=== PATIENT | female | born 1970 | race Caucasian/White ===

== ENCOUNTER 2019-10-16 12:12 | Emergency (ER) | payer BC, OTHER ==
[~2019-10-16] VITALS: Ht 160 cm; Wt 90.7 kg
[2019-10-16] MEDS ORDERED: LISI-552 (12:27)
--- NOTE | 2019-10-16 12:31 | ED Lower Extremity ---
General Chief Complaint: Lower Extremity Stated Complaint: L ANKLE PAIN/MISSED A STEP Nursing Triage Note: LEFT ANKLE PAIN AFTER MISSING STEP THIS AM. Nursing Sepsis Screen: No Definite Risk History of Present Illness Date Seen by Provider: Oct 16, 2019 Time Seen by Provider: 12:29 Initial Comments 49-year-old female who presents with left ankle pain. Reports that she missed a step this morning. When she twisted her ankle. It hurts to bear weight. Patient denies any other injuries. Allergies and Home Medications Allergies Coded Allergies: No Known Drug Allergies (Unverified , 10/16/19) Patient Home Medication List Home Medication List Reviewed: Yes Review of Systems Constitutional: no symptoms reported EENTM: no symptoms reported Respiratory: cough Cardiovascular: no symptoms reported Gastrointestinal: no symptoms reported Musculoskeletal: see HPI Past Uzwpvxq-Zdovmq-Jzrwmr Hx Past Med/Social Hx: Reviewed Nursing Past Med/Soc Hx Patient Social History Alcohol Use: Denies Use Recreational Drug Use: No Smoking Status: Never a Smoker Recent Foreign Travel: No Contact w/Someone Who Travel: No Recent Infectious Disease Expo: No Recent Hopitalizations: No Seasonal Allergies Seasonal Allergies: No Past Medical History Section, Hysterectomy, Orthopedic Respiratory: No Cardiac: No Neurological: No Genitourinary: No Gastrointestinal: No Musculoskeletal: No Endocrine: Yes Diabetes, Non-Insulin dep Cancer: No Psychosocial: No Integumentary: No Physical Exam Vital Signs Vital Signs - First Documented 10/16/19 12:15 Temp 37.0 Pulse 83 Resp 16 B/P (MAP) 155/95 (115) Pulse Ox 99 O2 Delivery Room Air Capillary Refill : Less Than 3 Seconds Height, Weight, BMI Height: '" Weight: lbs. oz. kg; 35.00 BMI Method: General Appearance: WD/WN, no apparent distress Cardiovascular: normal peripheral pulses, regular rate, rhythm Respiratory: lungs clear, normal breath sounds Gastrointestinal: non tender, soft Hips: bilateral hip non-tender Legs: bilateral leg non-tender Knees: bilateral knee non-tender Ankles: right ankle non-tender; left ankle limited range of motion, left ankle soft tissue tenderness, left ankle swelling Feet: bilateral foot non-tender Neurologic/Psychiatric: alert, normal mood/affect, oriented x 3 Skin: normal color, warm/dry Progress/Results/Core Measures Results/Orders My Orders Orders - MARIAM LYON DO Ankle, Left, 3 Views (10/16/19 12:28) Tibia/Fibula, Left, 2 Views (10/16/19 12:45) Ortho Glass (10/16/19 13:06) Crutches (10/16/19 13:06) Vital Signs/I&O 10/16/19 12:15 Temp 37.0 Pulse 83 Resp 16 B/P (MAP) 155/95 (115) Pulse Ox 99 O2 Delivery Room Air Blood Pressure Mean: 115 Progress Progress Note : Time: 13:12 Progress Note Patient with left tibia fracture just proximal to the hardware from a previous ankle surgery. Patient will have a posterior splint placed, given crutches and should follow-up with orthopedic surgery next week Departure Impression Primary Impression: Fracture of tibia or fibula following insertion of orthopedic implant, joint prosthesis, or bone plate, left leg Disposition: HOME, SELF-CARE Condition: Stable Departure-Patient Inst. Referrals: FAUSTINA TATE (PCP/Family) Primary Care Physician Patient Instructions: Fibula Fracture Add. Discharge Instructions: Please call the orthopedic surgeon of your choice Friday morning to arrange for follow-up and reevaluation as soon as possible Do not bear weight on left leg All discharge instructions reviewed with patient and/or family. Voiced understanding. Scripts Hydrocodone Bit/Acetaminophen (Hydrocodone/Acetaminophen 5/325mg Tablet) 1 Tab Tab 1 EACH PO Q4-6HR PRN for PAIN-MODERATE MDD 10 for 3 Days, #8 TAB Prov: MARIAM LYNO DO 10/16/19 Work/School Note: Work Release Form Date Seen in the Emergency Department: Oct 16, 2019 Restrictions: Need Release from Doctor MARIAM LYON DO Oct 16, 2019 12:30
--- NOTE | 2019-10-16 12:58 | Diagnostic Imaging Report ---
EXAMINATION: Left ankle radiographs, 3 views. COMPARISON: None. HISTORY: 49-year-old female, fall. Left ankle pain. FINDINGS: There is sideplate and screw fixation hardware at the level of the distal fibular diaphysis. There is a mildly displaced mid to distal fibular diaphyseal fracture just above the level of the sideplate. The distal fracture fragment is displaced laterally by 4 mm. There are medial malleolar are fixation screws. There is a mildly displaced posterior malleolar fracture with incomplete bridging. Recommend correlation with patient history. There is a small calcaneal heel spur. The alignment of the ankle mortise is grossly unremarkable. There is incomplete healing of a probable prior medial malleolar fracture traversed by the fixation screws. IMPRESSION: 1. Acute mid to distal fibular diaphyseal fracture occurring just above the level of the sideplate and screw fixation hardware. 2. Incomplete healing of prior medial malleolar and probable prior posterior malleolar fractures. Dictated by: Dictated on workstation # [id number]
--- NOTE | 2019-10-16 13:01 | Diagnostic Imaging Report ---
EXAMINATION: Left tibia and fibula radiographs, 2 views, 4 images. COMPARISON: None. HISTORY: 49-year-old female, fall. Left ankle pain. FINDINGS: There is a mildly displaced mid to distal fibular diaphyseal fracture just above the level of the sideplate and screw fixation hardware with displacement of the distal fracture fragment laterally by 4 mm. There are medial malleolar screws traversing an incompletely bridged medial malleolar fracture which is transversely oriented. There is most likely a prior nonunited fracture of the posterior malleolus. Correlation with patient history is recommended. There is no knee joint effusion. There is a small calcaneal heel spur. IMPRESSION: 1. Acute mildly displaced mid to distal fibular diaphyseal fracture occurring just proximal to the sideplate and screw fixation hardware in the distal fibula. Dictated by: Dictated on workstation # [id number]
[2019-10-16] MEDS ORDERED: ACHD5005 PO (13:17)
--- NOTE | 2019-10-16 13:25 | NUR ---
DR LYON CHECKED SPLINT THAT WAS PLACED AND STATES IT IS FINE. [facility] CHECK WNL.
[2019-10-16 13:31] VITALS: BP 155/95
== END 2019-10-16 13:31 | disposition home or self-care (01) ==
LOC: EDUNIT# 12:12 → ER 12:14
DX: M96.671 Fracture of tibia or fibula following insertion of orthopedic implant, joint prosthesis, or bone plate, right leg (principal); X50.1XXA Overexertion from prolonged static or awkward postures, initial encounter
CPT/HCPCS: 29505; 73590; 73610

== ENCOUNTER 2019-10-22 11:54 | Emergency (ER) | payer OTHER ==
[~2019-10-22] VITALS: Ht 154 cm; Wt 97.0 kg
[~2019-10-22 11:54] MED LIST: ACHD5005 PO; LISI-552
[2019-10-22 12:00] VITALS: BP 131/84
[2019-10-22] MEDS ORDERED: ESTR2TAB (12:10)
[2019-10-22] MEDS ORDERED: FAMO20TA5 (12:10)
--- NOTE | 2019-10-22 12:23 | ED Lower Extremity ---
General Chief Complaint: Post OP Complications/Pain Stated Complaint: L LEG POST OP BLEEDING Nursing Triage Note: SURGERY ON LEG WED BY DR FORREST. STATES SHE WANTS US TO CHECK THE BRITTANEY AND POSSIBLY DUE A DRESSING CHANGE BECAUSE IT IS BLEEDING. Nursing Sepsis Screen: No Definite Risk Source: patient Exam Limitations: no limitations History of Present Illness Date Seen by Provider: Oct 22, 2019 Time Seen by Provider: 12:19 Initial Comments Patient sustained a fibular fracture on the left on . She had ORIF Dr. Osmar Franklin on 10/20/19. Today she noticed some oozing of blood from the superior aspect of the lateral incision. She called Dr. Forrest who advised her to go to either [facility] or [facility], they didn't want to drive that far so they came here. No fevers, no severe pain. Onset: this morning Severity: mild Pain/Injury Location: left leg Modifying Factors: Worse With Movement Allergies and Home Medications Allergies Coded Allergies: No Known Drug Allergies (Unverified , 10/16/19) Home Medications Hydrocodone Bit/Acetaminophen 1 Tab Tab, 1 EACH PO Q4-6HR PRN for PAIN-MODERATE Prescribed by: MARIAM LYON on 10/16/19 1317 Patient Home Medication List Home Medication List Reviewed: Yes Review of Systems Constitutional: see HPI; No chills EENTM: see HPI Respiratory: no symptoms reported Cardiovascular: no symptoms reported Genitourinary: no symptoms reported Musculoskeletal: see HPI Skin: see HPI Past Mrazhji-Hslike-Hubwcx Hx Patient Social History Alcohol Use: Denies Use Recreational Drug Use: No Smoking Status: Never a Smoker Recent Foreign Travel: No Contact w/Someone Who Travel: No Recent Infectious Disease Expo: No Recent Hopitalizations: Yes Seasonal Allergies Seasonal Allergies: No Past Medical History Section, Hysterectomy, Orthopedic Respiratory: No Cardiac: No Neurological: No Genitourinary: No Gastrointestinal: No Musculoskeletal: No Endocrine: Yes Diabetes, Non-Insulin dep Cancer: No Psychosocial: No Integumentary: No Physical Exam Vital Signs Vital Signs - First Documented 10/22/19 12:00 Temp 36.6 Pulse 87 Resp 16 B/P (MAP) 131/84 (100) Pulse Ox 99 O2 Delivery Room Air Capillary Refill : Less Than 3 Seconds Height, Weight, BMI Height: '" Weight: lbs. oz. kg; 40.00 BMI Method: General Appearance: WD/WN, no apparent distress HEENT: PERRL/EOMI, normal ENT inspection Respiratory: no respiratory distress, no accessory muscle use Hips: bilateral hip non-tender, bilateral hip normal inspection, bilateral hip normal range of motion Legs: left leg other (the splint and wrap was removed. There was some dried serous and was drainage from the superior aspect of the lateral incision. Some slight serous drainage from the inferior aspect of the medial incision. Gowen are all in place, no erythema. Brisk capillary refill and normal sensation of toes. The Xeroform was removed and replaced with Xeroform here, we wrapped with Sof-Rol and splint was reapplied.) Knees: bilateral knee non-tender, bilateral knee normal inspection, bilateral knee normal range of motion Ankles: bilateral ankle non-tender, bilateral ankle normal inspection, bilateral ankle normal range of motion Feet: bilateral foot non-tender, bilateral foot normal inspection, bilateral foot normal range of motion Neurologic/Psychiatric: alert, normal mood/affect, oriented x 3 Skin: normal color, warm/dry Progress/Results/Core Measures Results/Orders Vital Signs/I&O 10/22/19 12:00 Temp 36.6 Pulse 87 Resp 16 B/P (MAP) 131/84 (100) Pulse Ox 99 O2 Delivery Room Air Blood Pressure Mean: 100 Departure Impression Primary Impression: Encounter for postoperative wound care Disposition: 01 HOME, SELF-CARE Condition: Stable Departure-Patient Inst. Decision time for Depature: 12:22 Referrals: FAUSTINA TATE (PCP/Family) Primary Care Physician Patient Instructions: Wound Care (DC) Add. Discharge Instructions: Return to ER for any concerns. Follow-up with as scheduled ALLI MATHEW APRN Oct 22, 2019 12:23
--- OUTSIDE RECORDS SUMMARY | 2019-10-26 11:54 | XMS REPORT | Continuity of Care Document ---
Author Organization Unknown Address Unknown Phone Unavailable Allergies Active Description Code Type Severity Reaction Onset Reported/Identified Relationship to Patient Clinical Status Yes No Known Drug Allergies [id number] Drug Allergy Unknown N/A 10/16/2019 Medications There is no data. Problems Date Dx Coded Attending Type Code Diagnosis Diagnosed By 10/09/2008 DEB ELLIOTT MD 250.0 0 DIABETES II CONTROLLED 10/09/2008 DEB ELLIOTT MD 272.4 HYPERLIPIDEMIA UNSPECIFIED 10/09/2008 DEB ELLIOTT MD 276.8 HYPOKALEMIA 10/09/2008 DEB ELLIOTT MD 278.0 WEIGHT MANAGEMENT 10/09/2008 DEB ELLIOTT MD 307.4 0 INSOMNIA 10/09/2008 DEB ELLIOTT MD 401.1 HYPERTENSION, BENIGN ESSENTIAL 10/09/2008 DEB ELLIOTT MD 535.5 0 GASTRITIS UNSPEC 10/09/2008 DEB ELLIOTT MD 564.1 IRRITABLE BOWEL SYNDROME 10/09/2008 DEB ELLIOTT MD 719.0 7 EDEMA FOOT 10/09/2008 DEB ELLIOTT MD 724.5 BACKACHE 10/09/2008 MARIBELL TAYLOR APRNA S 250.00 DIABETES II CONTROLLED 10/09/2008 GAVI TAYLOR APRNNDA S 272.4 HYPERLIPIDEMIA UNSPECIFIED 10/09/2008 GAVI TAYLOR APRNNDA S 276.8 HYPOKALEMIA 10/09/2008 GAVI TAYLOR APRNNDA S 278.0 WEIGHT MANAGEMENT 10/09/2008 GAVI TAYLOR APRNNDA S 307.40 INSOMNIA 10/09/2008 GAVI TAYLOR APRNNDA S 401.1 HYPERTENSION, BENIGN ESSENTIAL 10/09/2008 GAVI TAYLOR APRNNDA S 535.50 GASTRITIS UNSPEC 10/09/2008 BRANDON PATEL ROJAS S 564.1 IRRITABLE BOWEL SYNDROME 10/09/2008 GAVI TAYLOR APRNNDA S 719.07 EDEMA FOOT 10/09/2008 GAVI TAYLOR APRNNDA S 724.5 BACKACHE 10/09/2008 SANCHEZ DDS, BERNARD 250.00 DIABETES II CONTROLLED 10/09/2008 SANCHEZ DDS, BERNARD 27 2.4 HYPERLIPIDEMIA UNSPECIFIED 10/09/2008 SANCHEZ DDS, BERNARD 27 6.8 HYPOKALEMIA 10/09/2008 SANCHEZ DDS, BERNARD 27 8.0 WEIGHT MANAGEMENT 10/09/2008 SANCHEZ DDS, BERNARD 307.40 INSOMNIA 10/09/2008 SANCHEZ DDS, BERNARD 40 1.1 HYPERTENSION, BENIGN ESSENTIAL 10/09/2008 SANCHEZ DDS, BERNARD 535.50 GASTRITIS UNSPEC 10/09/2008 SANCHEZ DDS, BERNARD 56 4.1 IRRITABLE BOWEL SYNDROME 10/09/2008 SANCHEZ DDS, BERNARD 719.07 EDEMA FOOT 10/09/2008 SANCHEZ DDS, BERNARD 72 4.5 BACKACHE 11/29/2008 DEB ELLIOTT MD V72.3 GYNECOLOGICAL EXAMINATION 11/29/2008 ROJAS TAYLOR APRN V72.3 GYNECOLOGICAL EXAMINATION 11/29/2008 SANCHEZ DDS, BERNARD V7 2.3 GYNECOLOGICAL EXAMINATION 02/06/2009 DEB ELLIOTT MD 272.2 HYPERLIPIDEMIA, MIXED 02/06/2009 DEB ELLIOTT MD 401.9 HYPERTENSION, UNSPECIFIED ESSENTIAL 02/06/2009 ROJAS TAYLOR APRN 272.2 HYPERLIPIDEMIA, MIXED 02/06/2009 ROJAS TAYLOR APRN 401.9 HYPERTENSION, UNSPECIFIED ESSENTIAL 02/06/2009 SANCHEZ DDS, BERNARD 27 2.2 HYPERLIPIDEMIA, MIXED 02/06/2009 SANCHEZ DDS, BERNARD 40 1.9 HYPERTENSION, UNSPECIFIED ESSENTIAL 03/07/2009 DEB ELLIOTT MD NODX NO DIAGNOSIS 03/07/2009 ROJAS TAYLOR APRN NODX NO DIAGNOSIS 03/07/2009 SANCHEZ DDS, BERNARD NO DX NO DIAGNOSIS 04/01/2009 DEB ELLIOTT MD V74.1 SCREENING EXAMINATION FOR PULMONARY TUBERCULOSIS 04/01/2009 ROJAS TAYLOR APRN V74.1 SCREENING EXAMINATION FOR PULMONARY TUBERCULOSIS 04/01/2009 BERNARD SANCHEZ DDS V7 4.1 SCREENING EXAMINATION FOR PULMONARY TUBERCULOSIS 04/10/2009 DEB ELLIOTT MD V70.4 EXAMINATION FOR MEDICOLEGAL REASONS 04/10/2009 ROJAS TAYLOR APRN V70.4 EXAMINATION FOR MEDICOLEGAL REASONS 04/10/2009 BERNARD SANCHEZ DDS V7 0.4 EXAMINATION FOR MEDICOLEGAL REASONS 05/17/2009 DEB ELLIOTT MD 729.5 PAIN IN LIMB 05/17/2009 ROJAS TAYLOR APRN 729.5 PAIN IN LIMB 05/17/2009 DANIEL CARROLL, BERNARD 72 9.5 PAIN IN LIMB 09/05/2009 DEB ELLIOTT MD 327.2 3 OBSTRUCTIVE SLEEP APNEA (ADULT) (PEDIATRIC) 09/05/2009 DEB ELLIOTT MD 530.8 1 ESOPHAGEAL REFLUX 09/05/2009 ROJAS TAYLOR APRN 327.23 OBSTRUCTIVE SLEEP APNEA (ADULT) (PEDIATRIC) 09/05/2009 ROJAS TAYLOR APRN 530.81 ESOPHAGEAL REFLUX 09/05/2009 BERNARD SANCHEZ DDS 327.23 OBSTRUCTIVE SLEEP APNEA (ADULT) (PEDIATRIC) 09/05/2009 DANIEL CARROLL, BERNARD 530.81 ESOPHAGEAL REFLUX 10/25/2014 DEB ELLIOTT MD 729.8 2 CRAMP OF LIMB 10/25/2014 ROJAS TAYLOR APRN 729.82 CRAMP OF LIMB 10/25/2014 BERNARD SANCHEZ DDS 729.82 CRAMP OF LIMB 11/17/2014 ROJAS TAYLOR APRN 477.0 ALLERGIC RHINITIS DUE TO POLLEN 11/17/2014 ROJAS TAYLOR APRN 719.43 PAIN- WRIST 11/17/2014 BERNARD SANCHEZ DDS 47 7.0 ALLERGIC RHINITIS DUE TO POLLEN 11/17/2014 BERNARD SANCHEZ DDS 719.43 PAIN- WRIST 10/19/2019 LYON DO, MARIAM L Ot M25.5 72 PAIN IN LEFT ANKLE AND JOINTS OF LEFT FO 10/19/2019 LYON DO, MARIAM L Ot M96.6 71 FX TIB/FIB FOL INSRT ORTHO IMPLNT/PROSTH 10/19/2019 LYON DO, MARIAM L Ot X50.1XXA OVEREXERTION FROM PROLONGED STATIC OR AW Procedures Code [place] [address] XRAY WRIST L COMP MIN 3 VIEWS 11/17/2014 Results Test Result Range CBC MORPHOLOGY - 04/02/19 08:39 CBC MORPHOLOGY NORMAL Encounters ACCT No. Visit Date/Time Discharge Status Pt. Type Provider Facility Loc./Unit Complaint [id number] 08/05/2019 09:40:00 08/05/2019 23:59 :00 DIS Outpatient Faustina Tate [id number] 06/25/2019 10:19:00 06/25/2019 23:59: 00 DIS Outpatient Faustina Tate [id number] 04/02/2019 08:40:00 04/02/2019 23:59:5 9 CLS Outpatient FAUSTINA TATE [id number] 04/02/2019 08:40:00 Document Registration [id number] 10/22/2019 11:55:00 020 12:25:00 DIS Emergency ALLI MATHEW APRN [facility] ER L LEG POST OP BLEEDING [id number] 10/16/2019 12:14:00 020 13:31:00 DIS Outpatient MARIAM LYON DO [facility] ER L ANKLE PAIN/MISSED A S TEP [id number] 04/02/2019 11:48:00 019 23:59:59 CLS Preadmit SURI TATEBERLY Gabino YARN WEIGHER [facility] RAD SCREENING [id number] 12/09/2014 15:56:00 12/09/2014 23:59: 59 CLS Outpatient BERNARD SANCHEZ DDS [id number] 11/17/2014 13:24:00 11/17/2014 23:59: 59 CLS Outpatient ROJAS TAYLOR APRN [id number] 10/25/2014 15:23:00 10/25/2014 23:59: 59 CLS Outpatient EARL WINSTON, DEB
== END 2019-10-22 12:25 | disposition home or self-care (01) ==
LOC: EDUNIT# 11:54 → ER 11:55
DX: S82.402D Unspecified fracture of shaft of left fibula, subsequent encounter for closed fracture with routine healing (principal); X58.XXXD Exposure to other specified factors, subsequent encounter
CPT/HCPCS: 99282

== ENCOUNTER 2020-03-15 10:58 | Outpatient (RCR) | payer MEDICARE, OTHER ==
[~2020-03-15 10:58] MED LIST changes: +ESTR2TAB; +FAMO20TA5
== END 2020-03-15 12:15 | disposition home or self-care (01) ==
PROVIDERS: ATTEND Podiatrist
DX: S82.842A Displaced bimalleolar fracture of left lower leg, initial encounter for closed fracture (principal); M81.0 Age-related osteoporosis without current pathological fracture; R03.0 Elevated blood-pressure reading, without diagnosis of hypertension; E11.9 Type 2 diabetes mellitus without complications; Z98.890 Other specified postprocedural states; Z87.81 Personal history of (healed) traumatic fracture; X58.XXXA Exposure to other specified factors, initial encounter

== ENCOUNTER 2020-06-06 05:32 | Outpatient (RCR) | payer MEDICARE ==
[~2020-06-06] VITALS: Ht 154.9 cm; Wt 99.5 kg
[~2020-06-06 05:32] MED LIST changes: +ASPI-1238 PO; +ATOR20TA66 PO; +DAPA10TA PO; -ESTR2TAB; +ESTR2TAB PO; +FOLI-74 PO; +FURO20TA4 PO; -LISI-552; +LISI-552 PO; +METF-865 PO; +PANT40TA52 PO; +PROM12.511 PO
== END 2020-06-06 10:28 | disposition home or self-care (01) ==
LOC: PREOP 05:32
PROVIDERS: ATTEND Surgery
DX: Z01.812 Encounter for preprocedural laboratory examination (principal); K80.80 Other cholelithiasis without obstruction; Z20.828 Contact with and (suspected) exposure to other viral communicable diseases
CPT/HCPCS: 87635

== ENCOUNTER 2020-06-08 06:54 | Day surgery (SDC) | payer MEDICARE ==
[~2020-06-08] VITALS: Ht 154 cm; Wt 99.5 kg
[2020-06-08] VITALS (12 sets, daily range): BP systolic 116–132; BP diastolic 71–88
[2020-06-08] MEDS ORDERED: BUP/EPI 0.5% 1:200,000 (SENSORCAINE) 30 ML VIAL ONE (07:27)
[2020-06-08] MEDS ORDERED: IOPAMIDOL 61% 30 ML (ISOVUE 300) VIAL ONE (07:27)
[2020-06-08] MEDS ORDERED: LACTATED RINGERS 1,000 ML IV PRN (07:33)
[2020-06-08] MEDS ORDERED: fentaNYL INJECTION 100 MCG/2 ML AMP ONE (07:38)
[2020-06-08] MEDS ORDERED: proPOfol 200 MG/20 ML (DIPRIVAN) VIAL IV ONE (07:38)
[2020-06-08] MEDS ORDERED: ROCURONIUM 10 MG/ML 5 ML SYRINGE IV ONE (07:38)
[2020-06-08] MEDS ORDERED: GLYCOPYRROLATE 0.2 MG/ML (ROBINUL) 2 ML VIAL ONE (07:38)
[2020-06-08] MEDS ORDERED: NEOSTIGMINE 3 MG/3 ML VIAL ONE (07:38)
[2020-06-08] MEDS ORDERED: LIDOCAINE PF 2% 5 ML (XYLOCAINE) VIAL ONE (07:38)
[2020-06-08] MEDS ORDERED: ONDANSETRON 4 MG/2 ML (SDV) Z0FRAN ONE (07:38)
[2020-06-08] MEDS ORDERED: SEVOFLURANE (ULTANE) 15 ML INHAL SOLN ONE ×3 (07:38→10:04)
[2020-06-08] MEDS ORDERED: MIDAZOLAM 2 MG/2 ML (VERSED) VIAL ONE (07:38)
[2020-06-08] MEDS ORDERED: ceFAZolin 2 GM IV Premixed 50 ML IV ONE (07:45)
[2020-06-08 07:46] LABS: BASOPHILS # (AUTO) 0.1 10^3/uL (0.0-0.1); BASOPHILS % (AUTO) 1 % (0-10); EOSINOPHILS # (AUTO) 0.1 10^3/uL (0.0-0.3); EOSINOPHILS % (AUTO) 2 % (0-10); HEMATOCRIT 43 % (35-52); HEMOGLOBIN 14.8 g/dL (11.5-16.0); LYMPHOCYTES # (AUTO) 2.2 10^3/uL (1.0-4.0); LYMPHOCYTES % (AUTO) 29 % (12-44); MEAN CORPUSCULAR HEMOGLOBIN 30 pg (25-34); MEAN CORPUSCULAR HGB CONC 34 g/dL (32-36); MEAN CORPUSCULAR VOLUME 86 fL (80-99); MONOCYTES # (AUTO) 0.4 10^3/uL (0.0-1.0); MONOCYTES % (AUTO) 5 % (0-12); NEUTROPHILS % (AUTO) 63 % (42-75); PLATELET COUNT 344 10^3/uL (130-400); WHITE BLOOD COUNT 7.8 10^3/uL (4.3-11.0)
[2020-06-08 07:59] LABS: CALCIUM 9.3 MG/DL (8.5-10.1); CREATININE SERUM 1.14 MG/DL (0.60-1.30); POTASSIUM 3.5 MMOL/L (3.6-5.0)
--- NOTE | 2020-06-08 08:03 | Progress Note-Pre Operative ---
Pre-Operative Progress Note H&P Reviewed The H&P was reviewed, patient examined and no changes noted. Date Seen by Provider: Jun 08, 2020 Time Seen by Provider: 08:02 Date H&P Reviewed: Jun 08, 2020 Time H&P Reviewed: 08:02 Pre-Operative Diagnosis: symptomatic cholelithiasis JULIUS EDMONDSON DO Jun 08, 2020 08:03
[2020-06-08] MEDS ORDERED: HYDROmorphone 2 MG/ML VIAL (DILAUDID) ONE (10:05)
--- NOTE | 2020-06-08 10:05 | Progress Note-Post Operative ---
Post-Operative Progess Note Surgeon (s)/Interventional Neuroradiologist (s) Surgeon JULIUS EDMONDSON DO Interventional Neuroradiologist: Dr. Cuevas to assist in retraction dissection and closure Pre-Operative Diagnosis symptomatic cholelithiasis Post-Operative Diagnosis symptomatic acute on chronic cholecystitis Procedure & Operative Findings Date of Procedure 06/08/20 Procedure Performed/Findings PROCEDURE: Laparoscopic cholecystectomy with intraoperative cholangiogram. COMPLICATIONS: None. PROCEDURE: The patient was taken to the operating suite and was prepped and draped in sterile fashion. A surgical pause was performed. Just superior to the umbilicus, a 12 mm incision was made. Dissection was taken down to the fascia, which was then scored and grasped with a Pravin and the abdomen was then entered. A 0 Vicryl suture was placed in a [id number] fashion and a Meyer trocar was placed and secured. Pneumoperitoneum was achieved. A 5mm trochar place in the subxyphoid and 2 in the right upper quadrant. The gallbladder was then grasped and elevated. It was inflammed and thickened. Had appearance of acute on chronic cholecystitis. The cystic duct, and cystic artery were then dissected out. Clip was placed on the distal portion of the cystic duct which was then partially transected. An arrow catheter was inserted into the duct. The cholangiogram was then performed. No filing defects and contrast made its way into the duodenum. Catheter removed. Clips were placed on proximal portion of the cystic duct and then the duct was then transected. Clips were placed along the proximal and distal portion of the cystic artery which was then transected. Hook cautery was used to dissect the gallbladder from the gallbladder fossa achieving hemostasis. A hole was mad in gallbladder and large gallstone came out. The gallbladder and stone was placed in an Endobag and removed through the 12 mm trocar site. The abdomen was then reinspected. Copious amounts of irrigation were used to irrigate the abdomen and there were no signs of active bleeding. Hemostasis had been achieved. The 12 mm fascial defect was then closed with 0 Vicryl suture that had been placed in a [id number] fashion. The abdomen was then desufflated, the trocars were removed. The abdomen was then washed and dried. The skin was then closed using 4-0 Monocryl in a subcuticular fashion. The abdomen was washed and dried and Skin Affix was place over incisions. Patient tolerated the procedure well without any complications and was taken to the recovery room in stable condition. Anesthesia Type general Estimated Blood Loss Estimated blood loss (mL): min Specimens/Packing Specimens Removed gallbladder JULIUS EDMONDSON DO Jun 08, 2020 10:05
[2020-06-08] MEDS ORDERED: HYDR-4226 PO (10:06)
--- NOTE | 2020-06-08 10:08 | Discharge Inst-Simple/Standard ---
Discharge Inst-Standard Discharge Medications New, Converted or Re-Newed RX: RX on Chart Patient Instructions/Follow Up Plan of Care/Instructions/FU: 2 weeks Vanessa Activity as Tolerated: No Discharge Diet: Regular Diet Other Inst to Patient Follow up Appt: Make appointment for 2 weeks. Instructions: No lifting greater than 10 pounds. No strenuous activity. May shower in 24 hours, no tub bath or soaking. Use incentive spirometer at home as directed. No Smoking Skin/Wound Care: You have special glue over incision, it will fall off on it's own. Symptoms to Report: Appetite Changes, Extremity Discoloration, Numbness/Tingling, Swelling Increased, Bleeding Excessive, Eyesight Changes, Pain Increased, Urine Color Change, Constipation(Persistent), Fever over 101 degree F, Pain/Pressure in ches t, Urinating Difficulty, Cough Up/Vomit Blood, Heart Beat Irreg/Pounding, Pain/Pressure in jaw, Vaginal Bleeding Increase, Cramps in feet or legs, Lightheadedness, Pain/Pressure in shoulder, Diarrhea(Persistent), Memory Changes Suddenly, Questions/Concerns, Weight gain consecutive days, Dizziness/Fainting, Nausea/Vomiting, Shortness of Breath, Weight gain over 2 pounds. If eyes or skin turn yellow notify physician. If questions or concerns contact your physician Or seek help at emergency department. JULIUS EDMONDSON DO Jun 08, 2020 10:07
--- NOTE | 2020-06-08 10:22 | Diagnostic Imaging Report ---
INDICATION: Fluoroscopy for intraoperative cholangiogram. Fluoroscopy was provided in the OR during intraoperative cholangiogram. 13 seconds of fluoroscopy time was utilized. Images demonstrate contrast being injected via the cystic duct remnant. There is opacification of the normal caliber intrahepatic and extrahepatic bile ducts. No filling defects are seen to suggest retained stone. Contrast flows into the duodenum. IMPRESSION: Fluoroscopy during intraoperative cholangiogram. Dictated by: Dictated on workstation # [id number]
[2020-06-08] MEDS ORDERED: morphine INJ 10 MG/ML 1ML (SYR OR VIAL) IVP ONE (10:30)
[2020-06-08] MEDS ORDERED: HYDROmorphone 2 MG/ML VIAL (DILAUDID) IV ONE (10:30)
[2020-06-08] MEDS ORDERED: ONDANSETRON 4 MG/2 ML (SDV) Z0FRAN IVP PRN (10:30)
--- NOTE | 2020-06-08 11:37 | Anesthesia-General Post-Op ---
General Patient Condition Mental Status/LOC: Same as Preop Cardiovascular: Satisfactory Nausea/Vomiting: Absent Respiratory: Satisfactory Pain: Controlled Complications: Absent Post Op Complications Complications None Follow Up Care/Instructions Patient Instructions None needed. Anesthesia/Patient Condition Patient Condition Patient is doing well, no complaints, stable vital signs, no apparent adverse anesthesia problems. PEACE MORGAN DO Jun 08, 2020 11:37
== END 2020-06-08 12:40 | disposition home or self-care (01) ==
LOC: SDC 06:54
PROVIDERS: ATTEND Surgery
DX: K80.12 Calculus of gallbladder with acute and chronic cholecystitis without obstruction (principal); K82.8 Other specified diseases of gallbladder; E11.9 Type 2 diabetes mellitus without complications; I10 Essential (primary) hypertension; E78.5 Hyperlipidemia, unspecified; E66.01 Morbid (severe) obesity due to excess calories; Z68.41 Body mass index [BMI] 40.0-44.9, adult; Z79.899 Other long term (current) drug therapy; Z79.84 Long term (current) use of oral hypoglycemic drugs; Z79.82 Long term (current) use of aspirin; Z79.890 Hormone replacement therapy; Z11.2 Encounter for screening for other bacterial diseases
CPT/HCPCS: 36415; 76000; 80048; 82962; 85025; 87081

== ENCOUNTER → 2020-11-06 | Outpatient (CLI) | payer MEDICARE, OTHER ==
[~2020-11-06] MED LIST changes: +HYDR-4226 PO; -LISI-552 PO; +LISI20TA26 PO
--- NOTE | 2020-11-06 12:42 | Diagnostic Imaging Report ---
Indication: Routine screening. No prior mammograms are available for comparison. 2-D and 3-D bilateral screening mammography was performed with CAD. Scattered fibroglandular densities are identified bilaterally. No mass or malignant appearing microcalcifications are seen. Axillae are unremarkable. IMPRESSION: BI-RADS Category 1 No mammographic features suspicious for malignancy are identified. ACR BI-RADS Category 1: Negative. Result letter will be mailed to the patient. Note: At least 10% of breast cancer is not imaged by mammography. Dictated by: Dictated on workstation # [id number]
== END ==
LOC: RAD 10:55
PROVIDERS: ATTEND Nurse Practitioner
DX: Z12.31 Encounter for screening mammogram for malignant neoplasm of breast (principal)
CPT/HCPCS: 77063; 77067

== ENCOUNTER → 2021-05-03 | Outpatient (CLI) | payer OTHER ==
[~2021-05-03] VITALS: Ht 154.9 cm; Wt 103.0 kg
[~2021-05-03] MED LIST changes: +BENZ200C51 PO; +GEMF600T88 PO; +GLIM2TAB4 PO; +POTA10TA36 PO; +TRAM50TA3 PO
== END | disposition home or self-care (01) ==
LOC: PREOP 06:58
PROVIDERS: ATTEND Surgery
DX: Z01.818 Encounter for other preprocedural examination (principal)

== ENCOUNTER 2021-05-15 07:27 | Day surgery (SDC) | payer OTHER ==
[~2021-05-15] VITALS: Ht 155 cm; Wt 103.0 kg
[2021-05-15] MEDS ORDERED: LACTATED RINGERS 1,000 ML IV STA (07:33)
[2021-05-15] MEDS ORDERED: LACTATED RINGERS 1,000 ML IV ONE (07:37)
[2021-05-15] MEDS ORDERED: PROPOFOL INJECTION 50 ML IV ONE ×2 (07:58→08:59)
[2021-05-15] MEDS ORDERED: MIDAZOLAM 2 MG/2 ML (VERSED) VIAL ONE (07:58)
[2021-05-15 08:15] VITALS: BP 118/78
--- NOTE | 2021-05-15 08:17 | Progress Note-Pre Operative ---
Pre-Operative Progress Note H&P Reviewed The H&P was reviewed, patient examined and no changes noted. Date Seen by Provider: May 15, 2021 Time Seen by Provider: 08:16 Date H&P Reviewed: May 15, 2021 Time H&P Reviewed: 08:17 Pre-Operative Diagnosis: screening colonoscopy JULIUS EDMONDSON DO May 15, 2021 08:17
[2021-05-15] MEDS ORDERED: KETAMINE SYRINGE 50 MG/5 ML SYRINGE ONE (08:59)
[2021-05-15 09:25] VITALS: BP 109/62
--- NOTE | 2021-05-15 09:25 | Progress Note-Post Operative ---
Post-Operative Progess Note Surgeon (s)/Car Racer (s) Surgeon JULIUS EDMONDSON DO Car Racer: na Pre-Operative Diagnosis screening colonoscopy Post-Operative Diagnosis sigmoid polyp Procedure & Operative Findings Date of Procedure 05/15/21 Procedure Performed/Findings colonoscopy with hot bx polypectomy Anesthesia Type per plisse machine operator Estimated Blood Loss Estimated blood loss (mL): none Specimens/Packing Specimens Removed sigmoid polyp JULIUS EDMONDSON DO May 15, 2021 09:25
--- NOTE | 2021-05-15 09:25 | Discharge Inst-Simple/Standard ---
Discharge Inst-Standard Patient Instructions/Follow Up Plan of Care/Instructions/FU: 2 weeks denisse Activity as Tolerated: Yes Discharge Diet: Regular Diet JULIUS EDMONDSON DO May 15, 2021 09:25
[2021-05-15 09:30] VITALS: BP 113/61
[2021-05-15 09:35] VITALS: BP 113/61
[2021-05-15 09:53] VITALS: BP 113/61
--- NOTE | 2021-05-15 14:31 | Anesthesia-General Post-Op ---
MAC Patient Condition Mental Status/LOC: Same as Preop Cardiovascular: Satisfactory Nausea/Vomiting: Absent Respiratory: Satisfactory Pain: Controlled Complications: Absent Post Op Complications Complications None Follow Up Care/Instructions Patient Instructions None needed. Anesthesiology Discharge Order Discharge Order Patient is doing well, no complaints, stable vital signs, no apparent adverse anesthesia problems. No complications reported per nursing. ADAN BISWAS CRNA May 15, 2021 14:31
--- NOTE | 2021-05-15 14:39 | OPERATIVE REPORT ---
DATE OF SERVICE: 05/15/2021 PREOPERATIVE DIAGNOSIS: Screening colonoscopy. POSTOPERATIVE DIAGNOSIS: Sigmoid colon polyp. PROCEDURE: Colonoscopy with hot biopsy polypectomy. SURGEON: Julius Mendez DO ANESTHESIA: Per ENAMEL SPRAYER. ESTIMATED BLOOD LOSS: None. COMPLICATIONS: None. INDICATIONS: The patient is a 51-year-old female needing screening colonoscopy. She understands risks and benefits of procedure and wished to proceed with procedure. Consent was signed in the chart. DESCRIPTION OF PROCEDURE: The patient was taken to the endoscopy suite, placed in left lateral recumbent position. Timeout was performed. Digital rectal exam was performed. No palpable polyps, masses or ulcerations. Scope was inserted in the rectum and advanced all the way to cecum with minimal difficulty. Prep was adequate. Scope was then slowly retracted back. There were no polyps, masses or ulcerations in the cecum, ascending, transverse and descending colon. In sigmoid colon, a small polyp was present, which hot biopsy polypectomy was performed. Scope was then continuously retracted back noting no other pathology. Once in the rectum, scope was retroflexed noting no other pathology. Scope was returned to its normal position, slowly withdrawn until completely removed. The patient tolerated procedure well without any complications. She was taken to recovery room in stable condition. RECOMMENDATIONS: The patient will need repeat colonoscopy in 5 years. Any issues before that be seen at that time. The patient will follow up in the office in 2 weeks to discuss pathology results. Job ID: [id number] DocumentID: [id number] Dictated Date: 05/15/2021 09:29:38 Hoop Expander Date: 05/15/2021 14:39:06 Dictated By: JULIUS MENDEZ DO
== END 2021-05-15 09:56 | disposition home or self-care (01) ==
LOC: ENDO 07:27
PROVIDERS: ATTEND Surgery
DX: Z12.11 Encounter for screening for malignant neoplasm of colon (principal); K63.5 Polyp of colon; I10 Essential (primary) hypertension; E11.9 Type 2 diabetes mellitus without complications; Z79.899 Other long term (current) drug therapy; Z79.84 Long term (current) use of oral hypoglycemic drugs; Z79.02 Long term (current) use of antithrombotics/antiplatelets
CPT/HCPCS: 82947; 88305

== ENCOUNTER → 2021-06-15 | Outpatient (CLI) | payer OTHER ==
[~2021-06-15] MED LIST changes: -ESTR2TAB PO; +ESTR2TAB3 PO
--- NOTE | 2021-06-15 12:02 | Diagnostic Imaging Report ---
EXAMINATION: Right shoulder at 1048 AM INDICATION: Shoulder pain 3 views were obtained. There are no prior studies available for comparison. There is no fracture, dislocation or acute bony abnormality evident. There is only mild degenerative disease involving the glenohumeral and acromioclavicular joints. The soft tissues are unremarkable. IMPRESSION: There is no evidence for an acute bony abnormality. Dictated on workstation # [id number]
== END ==
LOC: RAD 10:17
PROVIDERS: ATTEND Nurse Practitioner
DX: M25.511 Pain in right shoulder (principal)
CPT/HCPCS: 73030

== ENCOUNTER → 2021-12-28 | Outpatient (CLI) | payer OTHER ==
[~2021-12-28] MED LIST changes: -POTA10TA36 PO; +POTA10TA37 PO
--- NOTE | 2021-12-28 11:37 | Diagnostic Imaging Report ---
Indication: Bilateral 3-D digital screening with CAD. CAD is utilized. The current study was also evaluated with a Computer Aided Detection (CAD) system. COMPARISON: 10/2020 FINDINGS: Density 2. A few scattered vascular calcifications stable. No suspicious microcalcifications, mass, architectural distortion or spiculated lesion. There has been no change and there were no findings suggestive of breast cancer. IMPRESSION: BI-RADS Category 2 ACR BI-RADS Category 2: Benign findings. Result letter will be mailed to the patient. Note: At least 10% of breast cancer is not imaged by mammography. Dictated by: Dictated on workstation # [id number]
== END ==
LOC: RAD 09:15
PROVIDERS: ATTEND Nurse Practitioner
DX: Z12.31 Encounter for screening mammogram for malignant neoplasm of breast (principal)
CPT/HCPCS: 77063; 77067

== ENCOUNTER → 2022-12-30 | Outpatient (CLI) | payer OTHER ==
[~2022-12-30] MED LIST changes: +POTA-177 PO; -POTA10TA37 PO
--- NOTE | 2022-12-30 13:22 | Diagnostic Imaging Report ---
INDICATION: Routine screening. COMPARISON: 12/28/2021 and 11/06/2020. TECHNIQUE: 2D and 3D bilateral screening mammography was performed with CAD. FINDINGS: Since the prior mammogram, the patient has undergone breast reduction surgery. There are scattered fibroglandular densities bilaterally. No mass or malignant-appearing microcalcifications are seen. The axillae are unremarkable. IMPRESSION: No mammographic features suspicious for malignancy are identified. ACR BI-RADS Category 1: Negative. Result letter will be mailed to the patient. Note: At least 10% of breast cancer is not imaged by mammography. Dictated by: Dictated on workstation # [id number]
== END ==
LOC: RAD 09:11
PROVIDERS: ATTEND Nurse Practitioner
DX: Z12.31 Encounter for screening mammogram for malignant neoplasm of breast (principal)
CPT/HCPCS: 77063; 77067